=== PATIENT | male | born 1945 | race Caucasian/White ===

== ENCOUNTER 2019-07-10 19:18 | Inpatient (IN) | payer MEDICAID ==
[~2019-07-10] VITALS: Ht 167.6 cm; Wt 77.1 kg
[2019-07-10 19:35] VITALS: BP 133/88
--- NOTE | 2019-07-10 19:38 | NUR ---
TO LOBBY A/W BED AMBULATORY
--- NOTE | 2019-07-10 19:47 | NUR ---
PT TAKEN TO BED 4
--- NOTE | 2019-07-10 19:56 | NUR ---
PT RETURN FROM XRAY
[2019-07-10] MEDS ORDERED: NACL 0.9% 1,000 ML IV ONE (20:05)
--- NOTE | 2019-07-10 20:06 | NUR ---
73/M C/O SOB X 3 DAYS, WITH DRY COUGH. DENIES CHEST PAIN OR PAIN ANYWHERE ELSE. STATES SAME SOB SYMPTOMS HAVE OCCURRED ONCE BEFORE. OCCASIONAL SOFT WHEEZES NOTED IN BL LUNG ERAZO. NAD AT THIS TIME. 97% ON RA. HX- HF (?), ABN HEART RHYTHM (?) PT UNSURE RX- LASIX, COUMADIN
--- NOTE | 2019-07-10 20:06 | NUR ---
NOTIFIED DR. TOBAR HR RANGING 120-140S, APPEARS TO BE AFIB ON BEDSIDE MONITOR, HX POSSIBLE ABN HEART RHYTHM ON COUMADIN OUTPATIENT.
--- NOTE | 2019-07-10 20:14 | NUR ---
DR. TOBAR AWARE OF PT HAS POSSIBLE HF AND IS ON LASIX OUTPATIENT, CONFIRMED TO CONTINUE W/ 1L BOLUS. Addendum: 07/10/19 at [address] SMITH PT REPORTS ON LASIX OUTPATIENT AND WITH POSSIBLE HF (PT UNSURE), CONFIRMED W/ TO CONTINUE W/ 1L BOLUS.
--- NOTE | 2019-07-10 20:22 | NUR ---
20G IV PLACED IN LT AC AND LABS DRAWN BY RN AT THIS TIME.
[2019-07-10 20:31] LABS: BASOPHILS % (AUTO) 0.5 % (0.0-2.0); EOSINOPHILS % (AUTO) 0.1 % (0.0-4.0); HEMATOCRIT 45.3 % (36-52); HEMOGLOBIN 14.8 g/dL (12.0-18.0); LYMPHOCYTES # (AUTO) 1.5 K/uL (2.0-11.5); LYMPHOCYTES % (AUTO) 21.5 % (20.5-51.1); MEAN CORPUSCULAR HEMOGLOBIN 29 pg (27-31); MEAN CORPUSCULAR HGB CONC 33 g/dL (33-37); MEAN CORPUSCULAR VOLUME 89.9 fL (80-94); MONOCYTES # (AUTO) 0.7 K/uL (0.8-1.0); MONOCYTES % (AUTO) 10.2 % (1.7-9.3); NEUTROPHILS # (AUTO) 4.8 K/uL (1.8-7.7); NEUTROPHILS % (AUTO) 67.7 % (42.2-75.2); PLATELET COUNT (AUTO) 178 K/uL (140-450); RED BLOOD CELL COUNT(AUTO) 5.04 MIL/uL (4.20-6.10); RED CELL DISTRIBUTION WIDTH 13.8 % (11.6-13.7)
[2019-07-10 20:45] LABS: ALBUMIN 3.5 g/dL (3.4-5.0); ASPARTATE AMINOTRANSFERASE 112 U/L (15-37); CARBON DIOXIDE 25.8 mmol/L (21-32); CHLORIDE 100 mmol/L (98-107); CREATININE 1.8 mg/dL (0.7-1.3); GLUCOSE 118 mg/dL (74-106); POTASSIUM 4.8 mmol/L (3.5-5.1); SODIUM SERUM 136 mmol/L (136-145); TOTAL BILIRUBIN 0.9 mg/dL (0.0-1.0); UREA NITROGEN, BLOOD 31 mg/dL (7-18)
--- NOTE | 2019-07-10 21:11 | NUR ---
REPORT TO EZRA HA. TRANSFER OF CARE AT THIS TIME.
--- NOTE | 2019-07-10 21:13 | NUR ---
RECEIVED REPORT FROM LELAND DIAZ. TRANSFER OF CARE AT THIS TIME.
--- NOTE | 2019-07-10 21:34 | NUR ---
Dr. Pollard examining patient.
--- NOTE | 2019-07-10 21:38 | NUR ---
DR TOBAR STATES HE WANT BOLUS ENDED. MEDICATION ENDED AT THIS TIME
[2019-07-10] MEDS ORDERED: VERAPAMIL 5 MG/2 ML VIAL IVP ONE (21:45)
[2019-07-10] MEDS ORDERED: ZOLPIDEM 5 MG TAB PO PRN (21:50)
[2019-07-10] MEDS ORDERED: ACETAMINOPHEN 325 MG TAB PO PRN (21:50)
[2019-07-10] MEDS ORDERED: DOCUSATE SODIUM 100 MG GELCAP PO PRN (21:50)
[2019-07-10] MEDS ORDERED: MORPHINE SULFATE 2 MG/ML SYR IVP PRN (21:50)
[2019-07-10] MEDS ORDERED: ONDANSETRON 4 MG/2 ML VIAL IM/IVP PRN (21:50)
[2019-07-10] MEDS ORDERED: HYDROcodone/APAP 5/325 MG 1 TAB TAB PO PRN (21:50)
[2019-07-10] MEDS ORDERED: LORazepam 2 MG/ML VIAL IM/IVP PRN (21:50)
[2019-07-10] MEDS ORDERED: ALBUTEROL SULFATE/IPRATROPIU 3 ML SOL IH PRN ×2 (21:55→23:10)
[2019-07-10] MEDS ORDERED: METO25TE2 PO (22:12)
[2019-07-10] MEDS ORDERED: LOSA50TA66 PO (22:12)
[2019-07-10] MEDS ORDERED: FURO-570 PO (22:12)
[2019-07-10] MEDS ORDERED: WARF6TAB PO (22:12)
[2019-07-10] MEDS ORDERED: POTA8TER12 PO (22:12)
[2019-07-10] MEDS ORDERED: GABA300C PO (22:12)
--- NOTE | 2019-07-10 22:21 | NUR ---
PTS HEART RATE DECREASED TO 74 AFTER MEDICATION. PT CALM AND PLEASANT. RR EVEN AND UNLABORED. DENIES PAIN AT THIS TIME. VSS.
[2019-07-10] MEDS ORDERED: MEDICATION REC. PHARMACY CONS. 1 EA MISC MC PRN (22:30)
--- NOTE | 2019-07-10 22:39 | NUR ---
Patient will be admitted to care of DR NINA. Admited to TELE. Will go to room 120A. Belongings list completed. Report to LELAND COREY.
[2019-07-10 22:40] VITALS: BP 72/34
--- NOTE | 2019-07-10 22:40 | NUR ---
ADMITTED THIS 73 YEAR OLD MALE FROM ER [facility] WITH CC OF SOB, AAOX4, VERBALLY RESPONSIVE, UNABLE TO AMBULATE TO BED DUE TO WEAKNESS AND SOB, VITAL SIGNS TAKEN:BP-72/34, RR-34, SAT-96%, P-74, PT WITH SOB, UNABLE TO COMPLETE A SENTENCE, RESTLESS, PUT ON FOWLERS POSITION, O2 AT 4L/NC, HX OBTAINED FROM SON MEL AT BEDSIDE, DR BAR AND CHARGE NURSE CRYSTAL MADE AWARE OF LATEST VITAL SIGNS, SAFETY MEASURES IN PLACE, CALL LIGHT WITHIN REACH.
[2019-07-10] MEDS ORDERED: NACL 0.9% 1,000 ML IV SCH (22:50)
--- NOTE | 2019-07-10 22:50 | NUR ---
1 L NS BOLUS STARTED ORDERED, PT STILL TACHYPNEIC WITH LABORED BREATHING, SAT-100%, DENIES ANY CHEST PAIN, MONITORED CLOSELY.
[2019-07-10 22:51] LABS: CHOL/HDL RATIO 2.4 (1-4.5); MAGNESIUM 2.6 mg/dL (1.8-2.4); PHOSPHORUS 3.9 mg/dL (2.5-4.9); THYROID STIMULATING HORMONE 6.02 uIU/mL (0.34-3.74)
[2019-07-10 22:57] LABS: PROTHROMBIN TIME 46.8 secs (10.8-13.4)
--- NOTE | 2019-07-10 23:15 | NUR ---
BP-99/76, HR-76, SAT-99%, DR BAR MADE AWARE, STATED WILL ORDER LASIX IVP X1 DOSE, PT CONTINUE TO BE TACHYPNEIC, PT DIAPHORETIC WITH COLD AND CLAMMY EXTREMITIES, MONITORED CLOSELY.
--- NOTE | 2019-07-10 23:17 | NUR ---
ABG DONE WITH NO INCIDENT. CRITICAL VALUE REPORTED TO MD BAR. WILL CONTINUE TO MONITOR.
[2019-07-10] MEDS ORDERED: FUROSEMIDE 20 MG/2 ML VIAL IVP SCH (23:30)
--- NOTE | 2019-07-10 23:46 | NUR ---
PT IS RESTLESS. SON AND RN AT BEDSIDE. BIPAP ON PER MD BAR ORDER. SETTINGS CHARTED. BIPAP CONNECTED TO RED OUTLET. HHN TX GIVEN WITH NO ADVERSDE REACTION. SKIN INTACT. PT IS SOB. RT AT BEDSIDE MONITORING CLOSELY.
--- NOTE | 2019-07-10 23:58 | NUR ---
RT JAQUELIN PUT PT ON BIPAP, PT ANXIOUS AND RESTLESS, MEDICATED PRN WITH ATIVAN IVP, VITAL SIGNS TAKEN:BP-113/33, HR-86, RR-34, CANNOT OBTAINED SAT AT THIS TIME, FINGERS IS VERY COLD AND CLAMMY, MONITORED CLOSELY.
[2019-07-11] VITALS (51 sets, daily range): BP systolic 83–137; BP diastolic 33–100
[2019-07-11] MEDS: NACL 0.9% 1,000 ML IV SCH ×2 (00:06→16:42)
--- NOTE | 2019-07-11 00:10 | NUR ---
IV BOLUS DONE, IVF NS AT 30ML STARTED, PT REMAINED TACHYPNEIC AND LABORED BREATHING, CONTINUE ON BIPAP, MONITORED CLOSELY.
--- NOTE | 2019-07-11 00:30 | NUR ---
PT RESTLESS SOMETIMES, REMAINED TACHYPNEIC AND LABORED BREATHING, VITAL SIGNS TAKEN, BP-83/54, HR-73, RR-36, UNABLE TO READ SAT DUE TO COLD AND CLAMMY FINGERS, DR BAR MADE AWARE.
--- NOTE | 2019-07-11 00:49 | NUR ---
PT TRANSFERRED TO ICU VIA BED ACCOMPANIED BY RT HAMMER, ON THE WAY PT IS RESTLESS, TRYING TO TAKE OFF BIPAP, REPORT GIVEN TO MADELEINE FOR CONTINUITY OF CARE.
--- NOTE | 2019-07-11 00:50 | NUR ---
PT ARRIVED IN THE UNIT FROM [facility]. CONFUSED. TRANSFERRED TO BED AND CONNECTED TO BEDSIDE MONITOR. HR AROUND 90S AND WAS AFIB ON THE MONITOR. S1+S2 HEARD. PULSES PALPABLE IN ALL EXTREMITIES. LUNG SOUND AUSCULTATED. WHEEZING HEARD. RESPIRATIONS ARE LABORED. PT ON BIPAP WITH SETTINGS 10/5, RATE 16 AND FIO2 40%. OXYGEN SATURATION AT HIGH 90S. RECEIVED PT WITH PERIPHERAL IV ACCESS ON LEFT AC 20G. LINE IS PATENT, INTACT AND ASYMPTOMATIC. DRESSING IS CLEAN. PT HAS NS RUNNING AT 30ML/HR. LINENS AND PT'S GOWN WERE CHANGED. KEPT HOB AT 30 DEGREES. ALL SAFETY PRECAUTIONS ARE IN PLACE. WILL CONTINUE TO MONITOR PT.
--- NOTE | 2019-07-11 00:50 | NUR ---
PT TRANSFERRED FROM TELE TO ICU ON BIPAP WITH NO INCIDENT.
[2019-07-11] MEDS ORDERED: LORazepam 2 MG/ML VIAL IVP ONE (01:00)
[2019-07-11] MEDS ORDERED: LORazepam 2 MG/ML VIAL ONE (01:29)
--- NOTE | 2019-07-11 01:30 | NUR ---
COLBY CATHETER INSERTED. NO FLASH OF URINE NOTED AT FIRST. AFTER FEW MINUTES, THERE WAS A FLASH OF CLEAR AND YELLOW URINE. PT SETTLED IN BED. ALL SAFETY PRECAUTIONS WERE KEPT IN PLACE. PT REMAINS AGITATED.
--- NOTE | 2019-07-11 01:35 | NUR ---
PT GIVEN 1X ATIVAN DOSE D/T INCREASED AGITATION. TOLERATED WELL.
[2019-07-11] MEDS ORDERED: LORazepam 2 MG/ML VIAL IVP SCH (02:00)
--- NOTE | 2019-07-11 02:10 | NUR ---
MORNING CARE PROVIDED. PT WAS CONFUSED AND TRYING TO TAKE OFF BIPAP MASK. NOT COOPERATING WITH STAFF. PT PULLED OUT IV IN THE PROCESS. PT'S SON WAS AT BEDSIDE HELPING TO CALM PT. IV ACCESS SUCCESSFULLY PLACED ON RIGHT AC 20G. IV LINE SECURED IN PLACE. NS CONTINUED RUNNING. RATE NOW CHANGED TO 60ML/HR. KEPT ALL SAFETY PRECAUTIONS IN PLACE.
[2019-07-11] MEDS ORDERED: PIPERACILLIN/TAZOBACTAM 2.25 GM VIAL IV ONE ×2 (02:36→02:40)
[2019-07-11] MEDS: PIPERACILLIN/TAZOBACTAM 2.25 GM in DEXTROSE 5% 50 ML IV SCH ×2 (02:54→08:53)
--- NOTE | 2019-07-11 03:24 | NUR ---
ABG DRAWN BY RT ROSENBAUM. MD BANEGAS AT BEDSIDE WITH MD BAR. NEW SETTINGS CHARTED. PT IS A LOT CALMER AND ASLEEP. SON AT BEDSIDE. WILL CONTINUE TO MONITOR.
--- NOTE | 2019-07-11 05:30 | NUR ---
URINE SPECIMEN COLLECTED. SENT TO LAB. PT HAS CLEAR AND YELLOW URINE OUTPUT
[2019-07-11] MEDS ORDERED: ALBUTEROL SULFATE/IPRATROPIU 3 ML SOL IH SCH ×2 (06:00)
[2019-07-11] MEDS ORDERED: PIPERACILLIN/TAZOBACTAM 2.25 GM in DEXTROSE 5% 50 ML IV SCH (06:00)
[2019-07-11] MEDS ORDERED: PIPERACILLIN/TAZOBACTAM 3.375 GM in DEXTROSE 5% 50 ML IV SCH (06:00)
[2019-07-11 06:11] LABS: APPEARANCE,URINE CLEAR (CLEAR); BILIRUBIN,URINE NEGATIVE (NEGATIVE); BLOOD, URINE 3+ (NEGATIVE); COLOR,URINE YELLOW (YELLOW); LEUKOCYTE ESTERASE ,URINE NEGATIVE (NEGATIVE); NITRITE, URINE NEGATIVE (NEGATIVE); PH,URINE 5.5 (5.0-9.0); UGLUCOSE NEGATIVE (NEGATIVE)
[2019-07-11 06:25] LABS: HYALINE CASTS, URINE 0-10 /LPF (None Seen); RBC,URINE 11-20 (MOD) /HPF (0-5); URINE AMORPHOUS URATE 1+ /HPF (None Seen); WBC,URINE 0-5 /HPF (0-5)
[2019-07-11 06:29] LABS: EOSINOPHILS % (AUTO) 0.1 % (0.0-4.0); HEMATOCRIT 43.8 % (36-52); HEMOGLOBIN 14.1 g/dL (12.0-18.0); LYMPHOCYTES # (AUTO) 1.1 K/uL (2.0-11.5); LYMPHOCYTES % (AUTO) 11.9 % (20.5-51.1); MEAN CORPUSCULAR HEMOGLOBIN 30 pg (27-31); MEAN CORPUSCULAR HGB CONC 32 g/dL (33-37); MEAN CORPUSCULAR VOLUME 92.7 fL (80-94); MONOCYTES # (AUTO) 1.1 K/uL (0.8-1.0); MONOCYTES % (AUTO) 10.9 % (1.7-9.3); NEUTROPHILS # (AUTO) 7.4 K/uL (1.8-7.7); NEUTROPHILS % (AUTO) 77.1 % (42.2-75.2); PLATELET COUNT (AUTO) 154 K/uL (140-450); RED BLOOD CELL COUNT(AUTO) 4.72 MIL/uL (4.20-6.10); RED CELL DISTRIBUTION WIDTH 14.4 % (11.6-13.7); WHITE BLOOD COUNT (AUTO) 9.6 K/uL (4.8-10.8)
[2019-07-11] MEDS ORDERED: NACL 0.9% 250 ML IV ONE (06:30)
[2019-07-11 06:31] LABS: CARBON DIOXIDE 23.5 mmol/L (21-32); CHLORIDE 103 mmol/L (98-107); POTASSIUM 4.5 mmol/L (3.5-5.1); SODIUM SERUM 139 mmol/L (136-145)
[2019-07-11 06:32] LABS: CREATININE 2.1 mg/dL (0.7-1.3); GLUCOSE 112 mg/dL (74-106); UREA NITROGEN, BLOOD 36 mg/dL (7-18)
[2019-07-11 06:47] LABS: MAGNESIUM 2.4 mg/dL (1.8-2.4); PHOSPHORUS 4.9 mg/dL (2.5-4.9)
[2019-07-11 07:04] LABS: PROTHROMBIN TIME 45.3 secs (10.8-13.4)
--- NOTE | 2019-07-11 07:10 | NUR ---
report given and chart audit done with SUSHANT prado
--- NOTE | 2019-07-11 07:30 | NUR ---
CHART AUDIT DONE BY DELFINA HA AND MADELEINE HA
--- NOTE | 2019-07-11 07:30 | NUR ---
RECIVED PT ON BIPAP WITH SETTINGS CHARTED BREATH SOUNDS PRESENT BILAT CLEAR TP AWAKE ALERT REMOVED BIPAP AND PLACED ON 2LPM NC DR AT BEDSIDE PT OK ON 2LPM SPO2 .98 0 RESP DISTRESS WILL CONTINUE TO MONITOR
--- NOTE | 2019-07-11 07:35 | NUR ---
RECEIVED PATIENT ON BED .RIGHT AC 20 GAUGE PIV WITH NS AT 60 ML/H.NO SIGNS OF INFILTRATION.COLBY TO GRAVITY WITH GOOD URINE OUTPUT.PT IS ALERT X 4.ATRIAL FIB ON THE MONITOR.PT CAN FOLLOW COMMANDS.PT ON BIPAP WITH SETTING IPAP=14,EPAP=7,RATE=10,40 PERCENT FIO2.WILL MONITOR.
--- NOTE | 2019-07-11 08:14 | NUR ---
PATIENT HAS BEEN SCREENED AND CATEGORIZED HIGH NUTRITION RISK. PATIENT WILL BE SEEN WITHIN 1-2 DAYS OF ADMISSION. 07/11/19-07/12/[address]
[2019-07-11] MEDS: GABAPENTIN 300 MG CAP PO SCH (08:52)
[2019-07-11] MEDS: LACTOBACILLUS RHAMNOSUS GG 1 EACH CAP PO SCH (08:52)
[2019-07-11] MEDS ORDERED: WARFARIN 5 MG TAB PO SCH (09:00)
[2019-07-11] MEDS ORDERED: LOSARTAN 50 MG TAB PO SCH (09:00)
[2019-07-11] MEDS ORDERED: FUROSEMIDE 40 MG TAB PO SCH (09:00)
[2019-07-11] MEDS ORDERED: METOPROLOL SUCCINATE 50 MG TABER PO SCH ×3 (09:00→20:00)
[2019-07-11] MEDS ORDERED: NON-FORMULARY ITEM (Warfarin Sodium* (Coumadin*) 1 TAB) PO SCH (09:00)
--- NOTE | 2019-07-11 10:40 | NUR ---
pt went to ct scan of the head with monitor.
--- NOTE | 2019-07-11 11:00 | NUR ---
DR MEYER NOTIFIED ABOUT HR 139.PT IS ASYMPTOMATIC
--- NOTE | 2019-07-11 11:00 | NUR ---
pt came back from ct of the head.pt tolerated well.
--- NOTE | 2019-07-11 12:29 | NUR ---
DR ALVA UPDATED ABOUT PTS CONDITION.AM=348.ATRIAL FIB.
[2019-07-11] MEDS: ALBUTEROL SULFATE/IPRATROPIU 3 ML SOL IH SCH ×2 (12:53→19:27)
[2019-07-11] MEDS ORDERED: FUROSEMIDE 20 MG/2 ML VIAL IVP SCH (13:30)
[2019-07-11] MEDS ORDERED: AMIODARONE 450 MG in DEXTROSE 5% 250 ML IV SCH ×2 (14:00→20:00)
--- NOTE | 2019-07-11 15:16 | NUR ---
07/11/19 RD INITIAL ASSESSMENT COMPLETED PLEASE REFER TO NUTRITION ASSESSMENT UNDER CARE ACTIVITY FOR ESTIMATED NUTRITIONAL NEEDS. 1. IF/WHEN MEDICALLY STABLE ADVANCE TO A CARDIAC DIET TOLERATED 2. RD PROVIDED NUTRITION EDUCATION THERAPY FOR CONGESTIVE HEART FAILURE. PT AND [id number] ACCEPTED 3. RD TO FOLLOW-UP 3-5 DAYS, MODERATE RISK LORNE [address]GH[address]
--- NOTE | 2019-07-11 17:30 | NUR ---
DR DÍAZ MADE AWARE HEART RATE IS 130S-150S.PT ASYMPTOMATIC.ALSO PT CO PAIN AT URINARY CATHETER AND WANTED IT OUT. SAID OK TO REMOVE
--- NOTE | 2019-07-11 17:40 | NUR ---
blankenship catheter dc as ordered.pt tolerated well.
--- NOTE | 2019-07-11 18:00 | NUR ---
PATIENT'S HR HAS BEEN 145-155, RESIDENT MADE AWARE.
--- NOTE | 2019-07-11 18:20 | NUR ---
dr brewer notified heart rate is still 130-150s.pt asymtomatic pt on amiodarone drip.
--- NOTE | 2019-07-11 18:30 | NUR ---
PAGED DR. ALVA, WAITING FOR CALL BACK.
--- NOTE | 2019-07-11 18:41 | NUR ---
Dr kelly seeing the patient.
--- NOTE | 2019-07-11 19:10 | NUR ---
report and chart audit done to SUSHANT prado
[2019-07-11] MEDS ORDERED: DIGOXIN 0.25 MG/ML AMP IV SCH (19:30)
--- NOTE | 2019-07-11 19:30 | NUR ---
RECEIVED REPORT PATIENT IS SEMI FOWLERS POSITION AWAKE ALERT AND ORIENTED PATIENT IS IN UNCONTROLLED ATRIAL FIB PATIENT BLOOD PRESSURE IS HOLDING ABOVE 100 SYSTOLIC AND PATIENT HAS BEEN STARTED ON AMMIODARONE DRIP AT [facility] TIME IS ON 1 MG/HR.PATIENT LOOKS SHORT OF BREATHE AND APPEARING ANXIOUS.PATIENT RESPIRATION LOOKS ABOURED AND PATIENT IS TACHYPNEIC.DR BAR ORDERED DIGOXIN 0.5MG IVP.PATIENT DAUGHRE AT BEDSIDE.PATIENT IS FOR PICC LINE INSERTION.PATIENT SIGNED CONSENT.
--- NOTE | 2019-07-11 19:30 | NUR ---
RECEIVED REPORT PATIENT IS AWAKE ALERT ORIENTE AND FOLLOWING COMMAND APPEARING ANXIOUS AND SHORT OF BREATHE BUT VERY PLEASANT AND VERY COOPERATIVE,PATIENT IS IN UNCONTROLLED ATRIAL FIB RATE OF 140/MIN.PATIENT IS SATURATING 99% ON 2 LITERS NASAL CANNULA. PATIENT IS ON AMMIODARONE DRIP AT 1 MG/HR TILL 2019 THEN GO DOWN TO 0.5MG/HR FOR 18 HOURS. DOGOXIN 0.5 MG IVP GIVEN ORDERED PATIENT IS TACHYPNEIC ENCOURAGED TO RELAX AND TAKE SLOW DEEP BREATHE.
--- NOTE | 2019-07-11 19:35 | NUR ---
CALLED [facility] [phone] Addendum: 07/11/19 at 2 by Mari Drew RN CALLED [facility] [phone] BY SAMANTHA NATARAJAN AT 1905; ENDORSE TO MARI DAY
[2019-07-11] MEDS ORDERED: METOPROLOL 5 MG/5 ML VIAL IV PRN (19:45)
[2019-07-11 21:28] LABS: ANION GAP 15.5 (8-16); CARBON DIOXIDE 22.5 mmol/L (21-32); CHLORIDE 105 mmol/L (98-107); CREATININE 2.1 mg/dL (0.7-1.3); GLUCOSE 109 mg/dL (74-106); SODIUM SERUM 139 mmol/L (136-145); UREA NITROGEN, BLOOD 44 mg/dL (7-18)
[2019-07-11] MEDS: FUROSEMIDE 20 MG/2 ML VIAL IVP SCH (21:29)
--- NOTE | 2019-07-11 21:30 | NUR ---
PATIENT SIGNED CONSENT FOR PICC LINE .PATIENT RECEIVED EXTRA DOSE OF LASIX ORDERED BY DR SCHMIDT.
[2019-07-12] VITALS (60 sets, daily range): BP systolic 81–121; BP diastolic 45–91
--- NOTE | 2019-07-12 01:00 | NUR ---
PATIENT HAS GOOD RESPOMNSE FROM LASIX AND AMMIODARONE PLUS EXRA DOSE OF METOPROLOL.PATIENT VOID LARGE AMOUNT AND RESPIRATION IS EASIER NOT LABOURED.PATIENT CONTINUE TO SATURATE 99-100% ON MONITOR NO DISTRESS OBSERVED,PATIENT SON AT BEDSIDE.
--- NOTE | 2019-07-12 04:00 | NUR ---
PATIENT AMMIODARONE HOOKED TO PICC LINE .PICC LINE CLEARED FOR USED.PATIENT RYTHM IS STILL ATRIAL FIB BUT CONTROLLED.
[2019-07-12 06:30] LABS: BASOPHILS % (AUTO) 0.7 % (0.0-2.0); EOSINOPHILS % (AUTO) 0.5 % (0.0-4.0); HEMOGLOBIN 12.6 g/dL (12.0-18.0); LYMPHOCYTES # (AUTO) 1.7 K/uL (2.0-11.5); LYMPHOCYTES % (AUTO) 23.5 % (20.5-51.1); MEAN CORPUSCULAR HEMOGLOBIN 30 pg (27-31); MEAN CORPUSCULAR HGB CONC 33 g/dL (33-37); MONOCYTES # (AUTO) 0.9 K/uL (0.8-1.0); MONOCYTES % (AUTO) 12.5 % (1.7-9.3); NEUTROPHILS # (AUTO) 4.5 K/uL (1.8-7.7); NEUTROPHILS % (AUTO) 62.8 % (42.2-75.2); PLATELET COUNT (AUTO) 146 K/uL (140-450); RED BLOOD CELL COUNT(AUTO) 4.18 MIL/uL (4.20-6.10); RED CELL DISTRIBUTION WIDTH 13.9 % (11.6-13.7); WHITE BLOOD COUNT (AUTO) 7.2 K/uL (4.8-10.8)
[2019-07-12] MEDS: ALBUTEROL SULFATE/IPRATROPIU 3 ML SOL IH SCH ×3 (06:35→18:42)
[2019-07-12 06:44] LABS: ANION GAP 13.1 (8-16); CARBON DIOXIDE 26.6 mmol/L (21-32); CHLORIDE 107 mmol/L (98-107); CREATININE 1.8 mg/dL (0.7-1.3); GLUCOSE 85 mg/dL (74-106); POTASSIUM 3.7 mmol/L (3.5-5.1); SODIUM SERUM 143 mmol/L (136-145); UREA NITROGEN, BLOOD 38 mg/dL (7-18)
[2019-07-12 06:50] LABS: PHOSPHORUS 3.5 mg/dL (2.5-4.9)
--- NOTE | 2019-07-12 06:59 | NUR ---
PATIENT HEART RATE IS CONTROLLED BUT STILL ATRIAL FIB,AMMIODARONE WILL RUN AT 0.5 MG/HR TILL 1400 AND PO AMMIODARONE WILL BE STARTED BEFORE AMMIO DRIP IS DCD.PATIENT HAS INTERMITTENT COUGHING.
[2019-07-12 07:09] LABS: HEPATITIS A ANTIBODY IGM Negative (Negative); HEPATITIS B SURFACE ANTIBODY Reactive (.); HEPATITIS B SURFACE ANTIGEN Negative (Negative)
[2019-07-12] MEDS: NACL 0.9% 1,000 ML IV SCH (07:29)
--- NOTE | 2019-07-12 07:30 | NUR ---
RECEIVED PT FROM PM SHIFT RN. PT AWAKE, ALERT. ON O2 NC 2L/MIN. BEDSIDE MONITOR SHOWS SR 80S. PT HAS IV TO RIGHT UPPER ARM PICC LINE RUNNING 0.9 NS AT 60 CC/HR AND AMIODARONE AT 0.5 MG/MIN=16.7 CC/ HR. PT ALSO HAS IV TO RIGHT AC , PT C/O PAIN WHEN FLUSH, SO REMOVED THIS PERIPHERAL IV. PT ABLE TO MOVE HIS EXTREMITIES. INTRODUCED MYSELF. PT VERBALIZED UNDERSTANDING . HOB ELEVATED 30 DEGREES WITH LOW BED POSITION, WILL CONTINUE TO MONITOR.
[2019-07-12] MEDS: METOPROLOL SUCCINATE 50 MG TABER PO SCH ×2 (09:00→20:18)
[2019-07-12] MEDS ORDERED: METOPROLOL SUCCINATE 50 MG TABER PO SCH (09:00)
[2019-07-12 09:38] LABS: PROTHROMBIN TIME 25.4 secs (10.8-13.4)
[2019-07-12] MEDS: FUROSEMIDE 20 MG/2 ML VIAL IVP SCH ×2 (09:39→20:19)
[2019-07-12] MEDS: GABAPENTIN 300 MG CAP PO SCH (09:39)
[2019-07-12] MEDS: LACTOBACILLUS RHAMNOSUS GG 1 EACH CAP PO SCH (09:40)
--- NOTE | 2019-07-12 09:40 | NUR ---
PT BP 99/63, HOLD METOPROLOL PER ORDER.
[2019-07-12] MEDS: AMIODARONE 200 MG TAB PO SCH ×2 (11:39→20:19)
[2019-07-12 11:45] LABS: HEPATITIS B CORE AB TOTAL POSITIVE (NEGATIVE)
[2019-07-12] MEDS: CHLORHEXADINE GLUC 2% CLOTH TP SCH (13:00)
[2019-07-12] MEDS: MUPIROCIN CA NASAL 2% 1GM TUBE NS SCH (13:00)
--- NOTE | 2019-07-12 14:00 | NUR ---
STOPPED AMIODARONE DRIP. PT SLEEPING AT THIS TIME. VITALS STABLE.
--- NOTE | 2019-07-12 18:42 | NUR ---
RECEIVED PT FROM AM SHIFT MAGISTRATE ASSISTANT. PT ON 2L NC WITH SP02 OF 99%. NO RESPIRATORY DISTRESS NOTED AT THIS TIME. BiPAP AT BEDSIDE FOR SOB. CLEAR/DIMINISHED BREATH SOUNDS. HHN TX GIVEN ORDERED WITH NO ADVERSE REACTION. BVM AT BEDSIDE, HOB>30. AIRWAY IS PATENT. WILL CONTINUE TO MONITOR PT
--- NOTE | 2019-07-12 18:50 | NUR ---
RECEIVED PT ON 2L NC WITH SP02 OF 99%. CLEAR/DIMINISHED BREATH SOUNDS. NO RESPIRATORY DISTRESS NOTED AT THIS TIME. HHN TX GIVEN ORDERED WITH NO ADVERSE REACTION. WILL CONTINUE TO MONITOR PT.
--- NOTE | 2019-07-12 19:15 | NUR ---
RECEIVED PT FROM AM SHIFT NURSE. PT IS ORIENTED X4 AWAKE AND ALERT. FOLLOWS COMMANDS. PT ON 2L NASAL CANNULA. NO SOB NOTED. PICC LINE ON RIGHT UPPER ARM. INTACT AND PATENT. NS INFUSING AT 60ML/HR. LUNG SOUNDS CLEAR. ABDOMEN SOFT AND ROUND. ACTIVE BOWEL SOUNDS. SKIN IS INTACT, WARM AND DRY. CAP REFILL LESS THAN 2 SECONDS. ABLE TO USE URINAL. DENIES PAIN. HOB 30 DEGREES. BED LOCKED IN LOWEST POSITION.
--- NOTE | 2019-07-12 20:05 | NUR ---
PT'S FAMILY AT BEDSIDE.
--- NOTE | 2019-07-12 22:35 | NUR ---
PT AWAKE IN BED, WATCHING TELEVISION. NO SOB NOTED. RESPIRATIONS EVEN AND UNLABORED. WILL CONTINUE TO MONITOR.
[2019-07-13] VITALS (12 sets, daily range): BP systolic 84–128; BP diastolic 57–83
--- NOTE | 2019-07-13 00:12 | NUR ---
PT HAS EYES CLOSED. NO SOB NOTED. RESPIRATIONS EVEN AND UNLABORED. CHEST RISE IS SYMMETRICAL. WILL CONTINUE TO MONITOR.
[2019-07-13] MEDS: NACL 0.9% 1,000 ML IV SCH ×2 (01:36→18:13)
--- NOTE | 2019-07-13 03:45 | NUR ---
PT REQUESTING TO USE THE BATHROOM. BEDPAN PROVIDED. WILL CONTINUE TO MONITOR.
--- NOTE | 2019-07-13 04:05 | NUR ---
PT OFF BEDPAN, NO BOWEL MOVEMENT NOTED. PT STATES, "IT WAS GAS."
--- NOTE | 2019-07-13 06:22 | NUR ---
PT HAS EYES CLOSED, RESTING IN BED. PT IS ABLE TO SELF REPOSITION. NO SOB NOTED. RESPIRATIONS EVEN AND UNLABORED. WILL CONTINUE TO MONITOR.
[2019-07-13 06:58] LABS: BASOPHILS % (AUTO) 0.6 % (0.0-2.0); EOSINOPHILS # (AUTO) 0.1 K/uL (0-0.4); EOSINOPHILS % (AUTO) 1.6 % (0.0-4.0); HEMATOCRIT 38.7 % (36-52); HEMOGLOBIN 12.5 g/dL (12.0-18.0); LYMPHOCYTES # (AUTO) 1.4 K/uL (2.0-11.5); LYMPHOCYTES % (AUTO) 20.4 % (20.5-51.1); MEAN CORPUSCULAR HEMOGLOBIN 30 pg (27-31); MEAN CORPUSCULAR HGB CONC 32 g/dL (33-37); MEAN CORPUSCULAR VOLUME 91.2 fL (80-94); MONOCYTES # (AUTO) 0.9 K/uL (0.8-1.0); MONOCYTES % (AUTO) 13.4 % (1.7-9.3); NEUTROPHILS # (AUTO) 4.4 K/uL (1.8-7.7); PLATELET COUNT (AUTO) 144 K/uL (140-450); RED BLOOD CELL COUNT(AUTO) 4.24 MIL/uL (4.20-6.10); RED CELL DISTRIBUTION WIDTH 14.2 % (11.6-13.7); WHITE BLOOD COUNT (AUTO) 6.9 K/uL (4.8-10.8)
[2019-07-13] MEDS: ALBUTEROL SULFATE/IPRATROPIU 3 ML SOL IH SCH ×3 (07:06→19:47)
[2019-07-13 07:23] LABS: ANION GAP 11.5 (8-16); CHLORIDE 106 mmol/L (98-107); CREATININE 1.3 mg/dL (0.7-1.3); GLUCOSE 86 mg/dL (74-106); POTASSIUM 3.5 mmol/L (3.5-5.1); SODIUM SERUM 141 mmol/L (136-145); UREA NITROGEN, BLOOD 26 mg/dL (7-18)
[2019-07-13 07:30] LABS: MAGNESIUM 1.7 mg/dL (1.8-2.4); PHOSPHORUS 2.7 mg/dL (2.5-4.9)
--- NOTE | 2019-07-13 07:30 | NUR ---
RECEIVED PT FROM PM SHIFT RN. PT AWAKE, ALERT. ON O2 NC 2L/MIN. BEDSIDE MONITOR SHOWS AFIB. PT HAS IV TO RIGHT UPPER ARM PICC LINE RUNNING 0.9 NS AT 60 CC/HR .PT ABLE TO MOVE HIS EXTREMITIES.POC EXPLAINED. PT VERBALIZED UNDERSTANDING . HOB ELEVATED 30 DEGREES WITH LOW BED POSITION, WILL CONTINUE TO MONITOR.
--- NOTE | 2019-07-13 07:30 | NUR ---
REPORT GIVEN TO AM NURSE. FOR CONTINUITY OF CARE.
[2019-07-13] MEDS: METOPROLOL SUCCINATE 50 MG TABER PO SCH (08:55)
[2019-07-13] MEDS: AMIODARONE 200 MG TAB PO SCH ×2 (08:55→20:10)
[2019-07-13] MEDS: LACTOBACILLUS RHAMNOSUS GG 1 EACH CAP PO SCH (08:56)
[2019-07-13] MEDS: GABAPENTIN 300 MG CAP PO SCH (08:56)
[2019-07-13] MEDS: FUROSEMIDE 20 MG/2 ML VIAL IVP SCH ×2 (08:57→20:09)
--- NOTE | 2019-07-13 11:00 | NUR ---
PT STAYING IN BED. NO S/S OF RESPIRATORY DISTRESS NOTED.
[2019-07-13] MEDS: guaiFENesin DM 200/20 MG-10 ML 10 ML UDC PO PRN (11:56)
[2019-07-13] MEDS: CHLORHEXADINE GLUC 2% CLOTH TP SCH (12:03)
[2019-07-13] MEDS: MUPIROCIN CA NASAL 2% 1GM TUBE NS SCH (12:03)
--- NOTE | 2019-07-13 13:50 | NUR ---
PT SLEEPING AT THIS TIME. NO S/S OF RESPIRATORY DISTRESS NOTED.
[2019-07-13] MEDS ORDERED: MAGNESIUM OXIDE 400 MG TAB PO PRN ×2 (14:35→14:36)
--- NOTE | 2019-07-13 15:31 | NUR ---
PT INSTRUCTED ON GIVING SPUTUM SAMPLE LELAND DIAZ NOTIFIED
--- NOTE | 2019-07-13 18:30 | NUR ---
ASSISTED PT TO SIT IN CHAIR. PT TOLERATED WELL.
--- NOTE | 2019-07-13 19:35 | NUR ---
PT RECEIVED FROM AM NURSE. PT IS AWAKE AND ALERT, ORIENTED X4. PT IS CURRENTLY SITTING UP IN THE CHAIR. REQUESTING TO USE BEDSIDE COMMODE.
--- NOTE | 2019-07-13 19:54 | NUR ---
RECEIVED PT FROM AM SHIFT CUSTOMER SERVICE TECHNICIAN. PT ON ROOM AIR WITH SP02 OF 99%. NO RESPIRATORY DISTRESS NOTED AT THIS TIME. BiPAP AT BEDSIDE FOR SOB. COARSE BREATH SOUNDS. HHN TX GIVEN ORDERED WITH NO ADVERSE REACTION. BVM AT BEDSIDE, HOB>30. AIRWAY IS PATENT. WILL CONTINUE TO MONITOR PT
--- NOTE | 2019-07-13 20:15 | NUR ---
PT HAD 1 BOWEL MOVEMENT. LARGE AMOUNT. FORMED AND BROWN. NORMAL ODOR.
--- NOTE | 2019-07-13 22:15 | NUR ---
PT HAS EYES CLOSED. RESTING IN BED. RESPIRATIONS EVEN AND UNLABORED. NO SOB NOTED. HOB 30 DEGREES. BED LOCKED IN LOWEST POSITION. WILL CONTINUE TO MONITOR.
[2019-07-14] VITALS: BP 109/70
--- NOTE | 2019-07-14 00:20 | NUR ---
PT REPOSITIONS HIMSELF IN BED. PT RESTING IN BED. PT AROUSABLE TO NAME. NO SOB NOTED. RESPIRATIONS EVEN AND UNLABORED. HOB 30 DEGREES. BED LOCKED IN LOWEST POSITION.
--- NOTE | 2019-07-14 01:50 | NUR ---
COMPLAINED OF BLOOD STREAKED TO [facility] SPUTUM; DR. JACK INFORMED AND AWARE.
[2019-07-14 02:00] VITALS: BP 107/80
--- NOTE | 2019-07-14 02:31 | NUR ---
PT HAS EYES CLOSED, PT IS SELF REPOSITIONING. NO SOB NOTED. RESPIRATIONS EVEN AND UNLABORED. WILL CONTINUE TO MONITOR.
[2019-07-14 04:00] VITALS: BP 113/78
--- NOTE | 2019-07-14 04:06 | NUR ---
PT IS AWAKE AND TALKING ON THE PHONE. PT REQUESTED FOR A WARM CUP OF WATER, WHICH WAS PROVIDED.
[2019-07-14 06:00] VITALS: BP 144/63
[2019-07-14 06:32] LABS: CARBON DIOXIDE 27.6 mmol/L (21-32); CHLORIDE 105 mmol/L (98-107); CREATININE 1.1 mg/dL (0.7-1.3); GLUCOSE 87 mg/dL (74-106); POTASSIUM 3.6 mmol/L (3.5-5.1); SODIUM SERUM 141 mmol/L (136-145); UREA NITROGEN, BLOOD 19 mg/dL (7-18)
--- NOTE | 2019-07-14 06:40 | NUR ---
PT BROUGHT BY WHEELCHAIR TO TELEMETRY UNIT.
[2019-07-14 07:07] LABS: BASOPHILS % (AUTO) 0.4 % (0.0-2.0); EOSINOPHILS # (AUTO) 0.1 K/uL (0-0.4); EOSINOPHILS % (AUTO) 1.4 % (0.0-4.0); HEMATOCRIT 40.3 % (36-52); HEMOGLOBIN 13.1 g/dL (12.0-18.0); LYMPHOCYTES # (AUTO) 1.6 K/uL (2.0-11.5); LYMPHOCYTES % (AUTO) 24.7 % (20.5-51.1); MEAN CORPUSCULAR HEMOGLOBIN 30 pg (27-31); MEAN CORPUSCULAR HGB CONC 33 g/dL (33-37); MEAN CORPUSCULAR VOLUME 91.1 fL (80-94); MONOCYTES # (AUTO) 0.9 K/uL (0.8-1.0); MONOCYTES % (AUTO) 13.3 % (1.7-9.3); NEUTROPHILS % (AUTO) 60.2 % (42.2-75.2); PLATELET COUNT (AUTO) 118 K/uL (140-450); RED BLOOD CELL COUNT(AUTO) 4.42 MIL/uL (4.20-6.10); RED CELL DISTRIBUTION WIDTH 14.2 % (11.6-13.7); WHITE BLOOD COUNT (AUTO) 6.6 K/uL (4.8-10.8)
--- NOTE | 2019-07-14 07:10 | NUR ---
RECEIVED BEDSIDE SHIFT REPORT, PATIENT IS SLEEPING IN BED, IN STABLE CONDITION AT THIS TIME.
[2019-07-14] MEDS: ALBUTEROL SULFATE/IPRATROPIU 3 ML SOL IH SCH ×2 (07:21→14:03)
[2019-07-14 08:00] VITALS: BP 107/68
[2019-07-14] MEDS ORDERED: LOSARTAN 25 MG TAB PO SCH (09:00)
[2019-07-14] MEDS ORDERED: LISINOPRIL 5 MG TAB PO SCH (09:00)
[2019-07-14] MEDS ORDERED: METOPROLOL SUCCINATE 50 MG TABER PO SCH (09:00)
--- NOTE | 2019-07-14 10:10 | NUR ---
SCHEDULED MEDICATIONS GIVEN TO PATIENT AT THE BEDSIDE. NO DISTRESS NOTED. ACKNOWLEDGED DISCHARGE ORDER FROM DR MEYER, PATIENT CLEANED, ORAL CARE WAS PREFORMED. WILL CONTINUE TO MONITOR AND PREPARE FOR DISCHARGE
[2019-07-14] MEDS: AMIODARONE 200 MG TAB PO SCH (10:33)
[2019-07-14] MEDS: GABAPENTIN 300 MG CAP PO SCH (10:34)
[2019-07-14] MEDS: LACTOBACILLUS RHAMNOSUS GG 1 EACH CAP PO SCH (10:35)
[2019-07-14] MEDS: FUROSEMIDE 20 MG/2 ML VIAL IVP SCH (10:35)
[2019-07-14] MEDS: NACL 0.9% 1,000 ML IV SCH (10:53)
[2019-07-14] MEDS ORDERED: WARF3TAB PO (11:49)
[2019-07-14] MEDS ORDERED: AMIO200T5 PO (11:49)
[2019-07-14 12:00] VITALS: BP 124/91
--- NOTE | 2019-07-14 13:00 | NUR ---
PATIENT REQUESTING MEDICATION FOR COUGH, MILD NON PRODUCTIVE COUGH NOTED. WILL GIVE MEDICATION PER PROTOCOL AND CONTINUE TO MONITOR.
[2019-07-14] MEDS: guaiFENesin DM 200/20 MG-10 ML 10 ML UDC PO PRN (13:45)
[2019-07-14] MEDS: CHLORHEXADINE GLUC 2% CLOTH TP SCH (13:46)
[2019-07-14] MEDS: MUPIROCIN CA NASAL 2% 1GM TUBE NS SCH (13:46)
--- NOTE | 2019-07-14 14:05 | NUR ---
PATIENT EDUCATED ON DISCHARGED INSTRUCTIONS,PATIENT VERBALIZED UNDERSTANDING OF PLAN OR CARE, HAS AN APPT WITH PCP 07/17/2019. MEDICATIONS WERE SENT TO THE PHARMACY. DISCHARGED FORMS WERE SIGNED AT THIS TIME. PATIENT IS CALLING HIS SON FOR PICKUP. WILL BE ON STAND BY FOR DISCHARGE WAITING FOR SONS ARRIVAL.
--- NOTE | 2019-07-14 15:15 | NUR ---
PATIENTS SON ARRIVED, PATIENT GATHERED HIS BELONGINGS, ALREADY CHANGED, IV BAND WITH DISCONTINUED AT THIS TIME. PIP-LINE WAS ALSO DISCONTINUED AND REMOVED WITH LUMEN IN TACT, NO BLEEDING, REDNESS OR SWELLING NOTED. ALL QUESTIONS PERTAINING TO HIS CARE WAS ANSWERED. PATIENT IS STABLE, GAIT IS STEADY AND PATIENT REQUESTING TO AMBULATE WITH SON TO THE LOBBY, PATIENT ESCORTED TO THE [facility] AND DISCHARGED AT THIS TIME. Addendum: 07/14/19 at 1829 by Luly Hansen RN ID BAND WAS DISCONTINUED AT THIS TIME.
== END 2019-07-14 15:15 | disposition home or self-care (01) | DRG 720 ==
LOC: MED 19:18 → MTU 21:53 → MIC 07-11 00:50 → MTU 07-14 06:45
PROVIDERS: ADMIT General Practice; ATTEND General Practice
PROC: 5A09357 Assistance with Respiratory Ventilation, Less than 24 Consecutive Hours, Continuous Positive Airway Pressure (ICD-10-PCS; principal; 2019-07-11)
PROC: 02HV33Z Insertion of Infusion Device into Superior Vena Cava, Percutaneous Approach (ICD-10-PCS; 2019-07-11)
PROC: B548ZZA Ultrasonography of Superior Vena Cava, Guidance (ICD-10-PCS; 2019-07-11)
DX: A41.9 Sepsis, unspecified organism (principal); J69.0 Pneumonitis due to inhalation of food and vomit; J96.21 Acute and chronic respiratory failure with hypoxia; N17.0 Acute kidney failure with tubular necrosis; I50.43 Acute on chronic combined systolic (congestive) and diastolic (congestive) heart failure; D68.9 Coagulation defect, unspecified; E83.41 Hypermagnesemia; N18.3 Chronic kidney disease, stage 3 (moderate); I48.91 Unspecified atrial fibrillation; G62.9 Polyneuropathy, unspecified; E83.42 Hypomagnesemia; K76.0 Fatty (change of) liver, not elsewhere classified; J96.22 Acute and chronic respiratory failure with hypercapnia; I13.0 Hypertensive heart and chronic kidney disease with heart failure and stage 1 through stage 4 chronic kidney disease, or unspecified chronic kidney disease; T45.515A Adverse effect of anticoagulants, initial encounter; I34.0 Nonrheumatic mitral (valve) insufficiency; E02 Subclinical iodine-deficiency hypothyroidism; Z87.891 Personal history of nicotine dependence; Y92.89 Other specified places as the place of occurrence of the external cause
CPT/HCPCS: 36415; 36600; 70450; 71045; 71046; 76700; 80048; 80053; 81001; 82803; 83036; 83605; 83690; 83735; 83880; 84100; 84134; 84443; 84484; 85025; 85379; 85610; 85730; 86704; 86706; 86708; 86709; 86803; 87040; 87070; 87081; 87086; 87205; 87340; 87804; 89220; 93005; 93925; 93970; 94640; 94660; 96361; 96374; 99285; C1751; J0282; J1160; J1940; J2060; J2543; J3490; J7030; J7060; J7620; Q0092